=== PATIENT | male | born 1990 | race Two or more races ===

== ENCOUNTER 2022-03-27 19:44 | Emergency (ER) | payer OTHER ==
[~2022-03-27] VITALS: Ht 167.6 cm; Wt 68.0 kg
[2022-03-27] MEDS ORDERED: SILVER SULFADIAZINE CREAM 25 GM TUBE TP ONE (20:00)
[2022-03-27] MEDS ORDERED: IBUPROFEN 600 MG TABLET PO ONE (20:00)
[2022-03-27] MEDS ORDERED: HYDROCODONE/APAP 10/325MG TABLET PO ONE (20:00)
[2022-03-27] MEDS ORDERED: TDAP [DIPH/PERTUSSIS/TET] 0.5 ML VIAL IM ONE ×2 (20:00→20:05)
[2022-03-27 20:01] VITALS: BP 130/82
[2022-03-27] MEDS ORDERED: SILVER SULFADIAZINE CREAM 25 GM TUBE ONE (20:04)
[2022-03-27] MEDS ORDERED: IBUPROFEN 600 MG TABLET ONE (20:05)
[2022-03-27] MEDS ORDERED: HYDROCODONE/APAP 10/325MG TABLET ONE (20:05)
[2022-03-27] MEDS ORDERED: HYDR-3972 PO (20:26)
[2022-03-27] MEDS ORDERED: IBUP-1955 PO (20:26)
--- NOTE | 2022-03-27 20:33 | NUR ---
Patient discharged to home in stable condition. Written and verbal after care instructions given. Patient verbalizes understanding of instruction.
== END 2022-03-27 20:33 | disposition home or self-care (01) ==
LOC: ER 19:47
DX: T23.201A Burn of second degree of right hand, unspecified site, initial encounter (principal); X19.XXXA Contact with other heat and hot substances, initial encounter; Y93.89 Activity, other specified; Y92.511 Restaurant or cafe as the place of occurrence of the external cause; Y99.0 Civilian activity done for income or pay
CPT/HCPCS: 90715